=== PATIENT | male | born 1970 | race Hispanic/Latino ===

== ENCOUNTER 2020-03-30 10:20 | Emergency (ER) | payer SELFPAY ==
[2020-03-30 11:20] LABS: Protime INR 1.06; RBC Red Blood Cell Count 3.84 M/uL (4.33-5.43)
[2020-03-30 11:21] LABS: Absolute Lymphocytes (CBC) 0.6 K/uL (0.7-4.9); Basophils % 1.1 % (0-1.3); Lymphocytes % 13.5 % (15.3-44.8); MPV 8.1 fL (7.6-11.3)
[2020-03-30 11:25] LABS: BUN Blood Urea Nitrogen 4 mg/dL (7-18); Bicarbonate 27 mmol/L (21-32); Glucose Level 109 mg/dL (74-106); Sodium Level 140 mmol/L (136-145)
[2020-03-30] MEDS ORDERED: ONDANSETRON 4 MG/2 ML VIAL ONE (13:45)
--- NOTE | 2020-03-30 14:53 | ER ---
Nurse's Notes [facility] Name: Hector Price Age: 49 yrs Sex: Male : 1970 Arrival Date: 03/30/2020 Time: 10:21 Bed 17 Private MD: Diagnosis: Left Maxillary joselyn-molar bleeding Presentation: 03/30 10:28 Chief complaint: Patient states: Blood coming out of my gums or teeth, am not sure ca1 where it's coming from, since 299 today, it's just non-stop. Denies pain, injury or procedure done. Not on blood thinners. Coronavirus screen: Proceed with normal triage. Patient denies a cough. Patient denies shortness of breath or difficulty breathing. Patient denies measured and/or subjective temperature greater than 100.4F prior to today's visit. Patient denies travel on a cruise ship or to a country the [facility] currently lists as an affected area. Patient denies contact with known and/or suspected case of COVID-19. Ebola Screen: Patient negative for fever greater than or equal to 101.5 degrees Fahrenheit, and additional compatible Ebola Virus Disease symptoms Patient denies exposure to infectious person. Patient denies travel to an Ebola-affected area in the 21 days before illness onset. No symptoms or risks identified at this time. Initial Sepsis Screen: Does the patient meet any 2 criteria? No. Patient's initial sepsis screen is negative. Does the patient have a suspected source of infection? No. Patient's initial sepsis screen is negative. Risk Assessment: Do you want to hurt yourself or someone else? Patient reports no desire to harm self or others. Note Lamp Replacer #[id number]. Onset of symptoms was March 30, 2020 at 03:00. 10:28 Method Of Arrival: Wheelchair ca1 10:28 Acuity: NATALIO 2 ca1 Historical: - Allergies: 10:31 No Known Allergies; ca1 - Home Meds: 10:31 None [Active]; ca1 - PMHx: 10:31 None; ca1 - PSHx: 10:31 None; ca1 - Immunization history:: Adult Immunizations up to date. - Social history:: Smoking status: Patient denies any tobacco usage or history of. Screenin:45 Abuse screen: Denies threats or abuse. Nutritional screening: No deficits noted. em Tuberculosis screening: No symptoms or risk factors identified. Fall Risk None identified. Assessment: 10:45 General: Appears in no apparent distress. comfortable, Behavior is calm, cooperative, em appropriate for age, Denies fever. Pain: Denies pain. Neuro: Level of Consciousness is awake, alert, obeys commands, Oriented to person, place, time, situation, Appropriate for age. Cardiovascular: Capillary refill < 3 seconds Patient's skin is warm and dry. Respiratory: Airway is patent Respiratory effort is even, unlabored, Respiratory pattern is regular, symmetrical. EENT: bleeding noted behind first lower left molar . Derm: Skin is intact, is healthy with good turgor, Skin is pink, warm \T\ dry. Musculoskeletal: Capillary refill < 3 seconds, Range of motion: intact in all extremities. 12:00 Reassessment: Patient appears in no apparent distress at this time. No changes from ll1 previously documented assessment. Patient and/or family updated on plan of care and expected duration. Pain level reassessed. Patient is alert, oriented x 3, equal unlabored respirations, skin warm/dry/pink. 13:30 Reassessment: pt reports blood is making his stomach upset, Dr. Sanchez notified, em received new medication orders. 14:30 Reassessment: Patient appears in no apparent distress at this time. No changes from ll1 previously documented assessment. Patient and/or family updated on plan of care and expected duration. Pain level reassessed. Patient is alert, oriented x 3, equal unlabored respirations, skin warm/dry/pink. 15:11 Reassessment: Patient appears in no apparent distress at this time. No changes from ll1 previously documented assessment. Patient and/or family updated on plan of care and expected duration. Pain level reassessed. Patient is alert, oriented x 3, equal unlabored respirations, skin warm/dry/pink. Vital Signs: 10:28 BP 165 / 94; Pulse 79; Resp 18 S; Temp 99(TE); Pulse Ox 96% on R/A; Weight 72.57 kg ca1 (R); Height 5 ft. 4 in. (162.56 cm) (R); Pain 0/10; 15:09 BP 151 / 81; Pulse 66; Resp 17; Temp 98.0; Pulse Ox 97% ; Pain 2/10; ll1 10:28 Body Mass Index 27.46 (72.57 kg, 162.56 cm) ca1 ED Course: 10:21 Patient arrived in ED. ca1 10:26 Giles Sanchez MD is Attending Physician. kdr 10:30 Triage completed. ca1 10:31 Arm band placed on right wrist. ca1 10:32 Patient has correct armband on for positive identification. Placed in gown. Bed in low ca1 position. Call light in reach. Side rails up X 1. Pulse ox on. NIBP on. Head of bed elevated. 10:45 Initial lab(s) drawn, by me, sent to lab. Inserted saline lock: 20 gauge in right em antecubital area, using aseptic technique. Blood collected. 10:50 Russel Bernal, RN is Primary Nurse. em 14:51 Link Stevenson DDS is Referral Physician. kdr 15:10 IV discontinued, intact, bleeding controlled, No redness/swelling at site. Pressure ll1 dressing applied. 15:11 No provider procedures requiring assistance completed. ll1 Administered Medications: No medications were administered Outcome: 14:52 Discharge ordered by MD. kdr 15:11 Discharged to home ambulatory. ll1 15:11 Condition: stable 15:11 Discharge instructions given to patient, Instructed on discharge instructions, follow up and referral plans. Demonstrated understanding of instructions, follow-up care. 15:11 Patient left the ED. ll1 Signatures: Giles Sanchez MD MD kdr Russel Bernal, RN ROBBIE Ursula Nur RN RN ca1 Jeremiah Ritchie RN RN ll1 Corrections: (The following items were deleted from the chart) 10:32 10:28 Chief complaint: Patient states: Blood coming out of my gums or teeth am not sure ca1 since 0300 today, it's just non-stop. Denies pain, injury or procedure done. Not on blood thinners. ca1
--- NOTE | 2020-03-30 14:54 | EDPHYS ---
Physician Documentation [facility] Name: Hector Price Age: 49 yrs Sex: Male : 1970 Arrival Date: 03/30/2020 Time: 10:21 Bed 17 Private MD: ED Physician Giles Sanchez HPI: 03/30 12:29 This 49 yrs old Male presents to ER via Wheelchair with complaints of bleeding kdr from gums and mouth. 12:29 The patient presents with bleeding. The problem is located in the left buccal mucosa kdr and upper left third molar. Onset: The symptoms/episode began/occurred acutely, suddenly, at 03:00. Duration: The symptoms are continuous, and are unchanged since they started. Modifying factors: The symptoms are alleviated by nothing, the symptoms are aggravated by nothing. Associated signs and symptoms: The patient has no apparent associated signs or symptoms. Severity of symptoms: At their worst the symptoms were mild, in the emergency department the symptoms are unchanged. The patient has experienced similar episodes in the past, a few times, but today's symptoms are worse, Has had this twice before but both ties it lasted only a short while and then resolved. This started at 3:00 AM today and has persisted. The patient has not recently seen a physician. Historical: - Allergies: 10:31 No Known Allergies; ca1 - Home Meds: : None [Active]; ca1 - PMHx: 10: None; ca1 - PSHx: 10:31 None; ca1 - Immunization history:: Adult Immunizations up to date. - Social history:: Smoking status: Patient denies any tobacco usage or history of. ROS: 12:29 Constitutional: Negative for fever, chills, and weight loss, Eyes: Negative for injury, kdr pain, redness, and discharge, Neck: Negative for injury, pain, and swelling. 12:29 ENT: Positive for Bleeding posteriorly to left posterior maxillary molar. Exam: 12:29 Constitutional: This is a well developed, well nourished patient who is awake, alert, kdr and in no acute distress. Head/Face: Normocephalic, atraumatic. Eyes: Pupils equal round and reactive to light, extra-ocular motions intact. Lids and lashes normal. Conjunctiva and sclera are non-icteric and not injected. Cornea within normal limits. Periorbital areas with no swelling, redness, or edema. Neck: Trachea midline, no thyromegaly or masses palpated, and no cervical lymphadenopathy. Supple, full range of motion without nuchal rigidity, or vertebral point tenderness. No Meningismus. 12:29 ENT: There is bright red blood dripping down slowly from non-visible site in the area of the left posterior maxillary molar. Vital Signs: 10:28 BP 165 / 94; Pulse 79; Resp 18 S; Temp 99(TE); Pulse Ox 96% on R/A; Weight 72.57 kg ca1 (R); Height 5 ft. 4 in. (162.56 cm) (R); Pain 0/10; 15:09 BP 151 / 81; Pulse 66; Resp 17; Temp 98.0; Pulse Ox 97% ; Pain 2/10; ll1 10:28 Body Mass Index 27.46 (72.57 kg, 162.56 cm) ca1 MDM: 14:52 Patient medically screened. kdr 14:57 Data reviewed: vital signs, nurses notes, lab test result(s). Counseling: I had a kdr detailed discussion with the patient and/or guardian regarding: the historical points, exam findings, and any diagnostic results supporting the discharge/admit diagnosis, lab results, the need for outpatient follow up. Physician consultation: Link Stevenson DDS. ED course: After multiple attempts to clear and tamponade the bleeding including Surgicel application, the bleeding continued unabated. The patient overall tolerated attempts to stop the bleeding. I had multiple discussions with Dr. Stevenson's office in support of attempting to resolve the bleeding without sending him ou. 03/30 11:23 Order name: CBC with Automated Diff; Complete Time: 11:34 EDMS 03/30 11:23 Order name: Protime (+INR); Complete Time: 11:34 EDMS 03/30 11:26 Order name: Basic Metabolic Panel; Complete Time: :34 EDMS Administered Medications: No medications were administered Disposition: 03/30/20 14:52 Discharged to Home. Impression: Left Maxillary joselyn-molar bleeding. - Condition is Stable. - Blank Diagnosis Outline, Medication Reconciliation Form, Thank You Letter form. - Follow up: Private Physician; When: Upon discharge from the Emergency Department; Reason: If symptoms return, Further diagnostic work-up, Recheck today's complaints, Continuance of care, Re-evaluation by your physician. Follow up: Link Stevenson DDS; When: Upon discharge from the Emergency Department; Reason: Further diagnostic work-up, Continuance of care, Re-evaluation by your physician. - Problem is new. - Symptoms are unchanged. - Notes: [facility] Signatures: Dispatcher [employer] EDMS Giles Sanchez MD MD [facility] Ursula Nur RN RN ca1 Jeremiah Ritchie RN RN ll1 Corrections: (The following items were deleted from the chart) 15:11 14:52 03/30/2020 14:52 Discharged to Home. Impression: Left Maxillary joselyn-molar ll1 bleeding. Condition is Stable. Forms are Medication Reconciliation Form, Thank You Letter, Antibiotic Education, Prescription Opioid Use. Follow up: Private Physician; When: Upon discharge from the Emergency Department; Reason: If symptoms return, Further diagnostic work-up, Recheck today's complaints, Continuance of care, Re-evaluation by your physician. Follow up: Link Stevenson; When: Upon discharge from the Emergency Department; Reason: Further diagnostic work-up, Continuance of care, Re-evaluation by your physician. Problem is new. Symptoms are unchanged. kdr
[2020-03-30 15:39] VITALS: BP 151/81; TEMP 98; O2SAT 97
== END 2020-03-30 15:11 | disposition home or self-care (01) ==
LOC: ER 10:20
DX: K06.8 Other specified disorders of gingiva and edentulous alveolar ridge (principal)
CPT/HCPCS: 36415; 80048; 85025; 85610; 99284; J2405